=== PATIENT | female | born 1995 | race African-American/Black ===

== ENCOUNTER 2018-04-26 18:15 | Emergency (ER) | payer OTHER ==
[~2018-04-26] VITALS: Ht 160 cm; Wt 104.5 kg
[~2018-04-26 18:15] MED LIST: ALBU8.5H5 INH; BUDE10.2; BUDE10.2 INH; CEPH-368 PO; MONT10TA6 PO; PRED1TAB PO; PRED20TA PO
[2018-04-26 18:46] LABS: BASOPHILS # (AUTO) 0.05 x10^3/uL (0-0.1); BASOPHILS % (AUTO) 0 % (0-1); EOSINOPHILS # (AUTO) 0.03 x10^3/uL (0-0.4); EOSINOPHILS % (AUTO) 0 % (1-7); LYMPHOCYTES # (AUTO) 1.88 x10^3/uL (1-3.4); LYMPHOCYTES % (AUTO) 14 % (22-44); MD NO; MEAN CORPUSCULAR HEMOGLOBIN 29.3 pg (27.0-34.8); MEAN CORPUSCULAR VOLUME 86.3 fL (80-100); MEAN PLATELET VOLUME 8.6 fL (7.4-10.4); MONOCYTES # (AUTO) 0.71 x10^3/uL (0.2-0.8); MONOCYTES % (AUTO) 5 % (2-9); NEUTROPHILS # (AUTO) 11.21 x10^3/uL (1.8-6.8); NEUTROPHILS % (AUTO) 81 % (42-75); PLATELET COUNT 324 x10^3/uL (130-400); RED CELL DISTRIBUTION WIDTH 13.7 % (9.6-15.2)
[2018-04-26 18:59] LABS: ALANINE AMINOTRANSFERASE 23 U/L (12-78); ALBUMIN 3.1 g/dL (3.4-5.0); ANION GAP 11 mmol/L (5-15); CHLORIDE 106 mmol/L (98-107); CREATININE 0.36 mg/dL (0.55-1.02)
[2018-04-26] MEDS ORDERED: SODIUM CHLORIDE FLUSH 10ML SYR IVF ONE (19:00)
[2018-04-26] MEDS ORDERED: ONDANSETRON ODT 4 MG PO ONE (19:00)
[2018-04-26] MEDS ORDERED: MORPHINE SULFATE 4 MG/ML, 1ML IVPush PRN (19:00)
[2018-04-26] MEDS ORDERED: SODIUM CHLORIDE 0.9% 1,000 ML IV ONE (19:00)
[2018-04-26] MEDS ORDERED: SODIUM CHLORIDE 0.9% 1,000ML IVBOLUS ONE (19:00)
[2018-04-26 19:02] LABS: ALKALINE PHOSPHATASE 83 U/L (45-117); BILIRUBIN,TOTAL 0.4 mg/dL (0.2-1.0); TOTAL PROTEIN 7.3 g/dL (6.4-8.2)
[2018-04-26] MEDS ORDERED: ONDANSETRON ODT 4 MG ONE (19:11)
[2018-04-26] MEDS ORDERED: MORPHINE SULFATE 4 MG/ML, 1ML ONE (19:30)
[2018-04-26 19:31] LABS: CULTURE INDICATED? YES; MICROSCOPIC INDICATED
[2018-04-26 21:14] VITALS: BP 118/62
== END 2018-04-26 21:39 | disposition home or self-care (01) ==
LOC: ED 20:22
DX: O26.892 Other specified pregnancy related conditions, second trimester (principal); G43.919 Migraine, unspecified, intractable, without status migrainosus; R10.9 Unspecified abdominal pain; Z3A.19 19 weeks gestation of pregnancy
CPT/HCPCS: 36415; 76815; 80053; 81001; 85025; 87086; 96361; 96374; 99285; J7030; Q0162

== ENCOUNTER 2018-05-17 10:40 | Outpatient (CLI) | payer OTHER ==
[~2018-05-17] VITALS: Ht 160 cm; Wt 100.9 kg
[2018-05-17 11:27] VITALS: BP 125/68
[2018-05-17 12:20] LABS: MICROSCOPIC INDICATED
[2018-05-17 12:46] LABS: CULTURE INDICATED? YES
[2018-05-17] MEDS ORDERED: SULF1TAB24 PO (13:28)
[2018-05-17] MEDS ORDERED: NITR100C56 PO (13:28)
== END 2018-05-17 13:38 | disposition home or self-care (01) ==
LOC: LDOP 10:40
PROVIDERS: ATTEND Obstetrics & Gynecology
DX: O42.912 Preterm premature rupture of membranes, unspecified as to length of time between rupture and onset of labor, second trimester (principal); O32.1XX0 Maternal care for breech presentation, not applicable or unspecified; O26.892 Other specified pregnancy related conditions, second trimester; Z3A.22 22 weeks gestation of pregnancy; R10.30 Lower abdominal pain, unspecified
CPT/HCPCS: 36415; 59025; 76815; 81001; 82731; 87086; 99201; G0463

== ENCOUNTER 2018-05-19 18:10 | Outpatient (CLI) | payer OTHER ==
[~2018-05-19] VITALS: Ht 160 cm; Wt 101.4 kg
[~2018-05-19 18:10] MED LIST changes: +NITR100C56 PO; +SULF1TAB24 PO
[2018-05-19 18:33] VITALS: BP 126/70
[2018-05-19 19:31] LABS: MICROSCOPIC AUTO
== END 2018-05-19 21:17 | disposition home or self-care (01) ==
LOC: LDOP 18:10
PROVIDERS: ATTEND Obstetrics & Gynecology
DX: O32.2XX0 Maternal care for transverse and oblique lie, not applicable or unspecified (principal); Z3A.00 Weeks of gestation of pregnancy not specified
CPT/HCPCS: 59025; 76770; 76815; 81001; 87086; 99201; G0463

== ENCOUNTER 2018-08-03 08:24 | Observation (INO) | payer OTHER ==
[~2018-08-03] VITALS: Ht 160 cm; Wt 102.0 kg
[2018-08-03] MEDS ORDERED: METF500T17 PO (08:42)
[2018-08-03] MEDS ORDERED: PREN1TAB60 PO (08:42)
[2018-08-03] MEDS ORDERED: DIPH25CA61 PO (08:42)
[2018-08-03] MEDS ORDERED: TERBUTALINE 1 MG/ML, 1ML IV ONE (09:00)
[2018-08-03] MEDS ORDERED: TERBUTALINE 1 MG/ML, 1ML ONE (09:00)
[2018-08-03 09:18] VITALS: BP 117/63
[2018-08-03 09:18] LABS: MICROSCOPIC INDICATED
== END 2018-08-03 11:40 | disposition home or self-care (01) ==
LOC: LDOP 08:24 → LDIP 10:36
PROVIDERS: ADMIT Obstetrics & Gynecology; ATTEND Obstetrics & Gynecology
DX: O36.8190 Decreased fetal movements, unspecified trimester, not applicable or unspecified (principal); Z3A.00 Weeks of gestation of pregnancy not specified
CPT/HCPCS: 36415; 59025; 81001; 82731; 87086; 96374; G0378; J3105

== ENCOUNTER 2018-08-16 17:08 | Outpatient (CLI) | payer OTHER ==
[~2018-08-16 17:08] MED LIST changes: +DIPH25CA61 PO; +METF500T17 PO; +PREN1TAB60 PO
[2018-08-16 18:10] LABS: MICROSCOPIC INDICATED
== END 2018-08-16 18:50 | disposition home or self-care (01) ==
LOC: LDOP 17:08
PROVIDERS: ATTEND Obstetrics & Gynecology
DX: O26.893 Other specified pregnancy related conditions, third trimester (principal); R10.9 Unspecified abdominal pain; Z3A.34 34 weeks gestation of pregnancy
CPT/HCPCS: 59025; 81001; 87086; 99211; G0463

== ENCOUNTER 2018-09-08 11:35 | Outpatient (CLI) | payer OTHER ==
[~2018-09-08] VITALS: Ht 160 cm; Wt 102.7 kg
[2018-09-08 12:15] VITALS: BP 146/86
[2018-09-08] MEDS ORDERED: ONDA4TAB7 PO (13:33)
[2018-09-08] MEDS ORDERED: ACET-1600 PO (13:34)
[2018-09-08] MEDS ORDERED: LORA10TA37 PO (13:35)
[2018-09-08 13:38] LABS: MICROSCOPIC INDICATED
== END 2018-09-08 15:04 | disposition home or self-care (01) ==
LOC: LDOP 11:35
PROVIDERS: ATTEND Obstetrics & Gynecology
DX: O36.8130 Decreased fetal movements, third trimester, not applicable or unspecified (principal); O62.9 Abnormality of forces of labor, unspecified; Z3A.38 38 weeks gestation of pregnancy
CPT/HCPCS: 59025; 76819; 81001; 87086; 89060; 99211; G0463; Q0114

== ENCOUNTER 2018-09-16 20:21 | Outpatient (CLI) | payer OTHER ==
[~2018-09-16] VITALS: Ht 160 cm; Wt 99.0 kg
[~2018-09-16 20:21] MED LIST changes: +ACET-1600 PO; +LORA10TA37 PO; +ONDA4TAB7 PO
[2018-09-16 20:59] LABS: MICROSCOPIC NOT IND
== END 2018-09-16 21:35 | disposition home or self-care (01) ==
LOC: LDOP 20:21
PROVIDERS: ATTEND Obstetrics & Gynecology
DX: O26.893 Other specified pregnancy related conditions, third trimester (principal); Z3A.39 39 weeks gestation of pregnancy
CPT/HCPCS: 59025; 81003; 87086; 99211; G0463

== ENCOUNTER 2018-09-22 14:14 | Outpatient (CLI) | payer OTHER ==
[~2018-09-22] VITALS: Ht 160 cm; Wt 100.4 kg
[2018-09-22 14:30] VITALS: BP 141/105
[2018-09-22 15:15] LABS: MICROSCOPIC INDICATED
[2018-09-22 15:15] LABS: BASOPHILS # (AUTO) 0.02 x10^3/uL (0-0.1); BASOPHILS % (AUTO) 0 % (0-1); EOSINOPHILS # (AUTO) 0.01 x10^3/uL (0-0.4); EOSINOPHILS % (AUTO) 0 % (1-7); LYMPHOCYTES % (AUTO) 9 % (22-44); MD NO; MEAN CORPUSCULAR HEMOGLOBIN 29.9 pg (27.0-34.8); MEAN PLATELET VOLUME 8.7 fL (7.4-10.4); MONOCYTES # (AUTO) 0.74 x10^3/uL (0.2-0.8); MONOCYTES % (AUTO) 7 % (2-9); NEUTROPHILS # (AUTO) 8.98 x10^3/uL (1.8-6.8); NEUTROPHILS % (AUTO) 84 % (42-75); PLATELET COUNT 274 x10^3/uL (130-400); RED BLOOD COUNT 3.94 x10^6/uL (3.82-5.3); RED CELL DISTRIBUTION WIDTH 13.4 % (9.6-15.2)
[2018-09-22 15:21] LABS: ALANINE AMINOTRANSFERASE 13 U/L (12-78); ALBUMIN 2.6 g/dL (3.4-5.0); ANION GAP 7 mmol/L (5-15); CALCIUM 8.2 mg/dL (8.5-10.1); CHLORIDE 108 mmol/L (98-107); CREATININE 0.48 mg/dL (0.55-1.02)
[2018-09-22 15:23] LABS: ALKALINE PHOSPHATASE 216 U/L (45-117); BILIRUBIN,TOTAL 0.5 mg/dL (0.2-1.0); TOTAL PROTEIN 6.1 g/dL (6.4-8.2)
== END 2018-09-22 17:10 | disposition home or self-care (01) ==
LOC: LDOP 14:14
PROVIDERS: ATTEND Obstetrics & Gynecology
DX: O10.913 Unspecified pre-existing hypertension complicating pregnancy, third trimester (principal); O26.893 Other specified pregnancy related conditions, third trimester; R10.9 Unspecified abdominal pain; Z3A.40 40 weeks gestation of pregnancy
CPT/HCPCS: 36415; 59025; 76819; 80053; 81001; 82570; 84156; 84550; 85025; 99211; G0463

== ENCOUNTER 2018-12-01 09:26 | Emergency (ER) | payer OTHER ==
[~2018-12-01] VITALS: Ht 160 cm; Wt 102.0 kg
[2018-12-01 09:33] VITALS: BP 149/99
[2018-12-01] MEDS ORDERED: KETOROLAC 30 MG/1 ML IM ONE (10:30)
[2018-12-01] MEDS ORDERED: METHOCARBAMOL 750 MG TABLET PO ONE (10:30)
[2018-12-01] MEDS ORDERED: METHOCARBAMOL 750 MG TABLET ONE (10:31)
[2018-12-01] MEDS ORDERED: KETOROLAC 30 MG/1 ML ONE (10:31)
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
== END 2018-12-01 11:06 | disposition home or self-care (01) ==
LOC: ED 10:43
DX: S39.012A Strain of muscle, fascia and tendon of lower back, initial encounter (principal); J45.909 Unspecified asthma, uncomplicated; Z90.89 Acquired absence of other organs; Z90.49 Acquired absence of other specified parts of digestive tract; V49.49XA Driver injured in collision with other motor vehicles in traffic accident, initial encounter; Y92.89 Other specified places as the place of occurrence of the external cause; Y93.89 Activity, other specified; Y99.8 Other external cause status
CPT/HCPCS: 72072; 72110; 96372; 99283; J1885